=== PATIENT | female | born 1950 | race Hispanic/Latino ===

== ENCOUNTER 2017-12-24 12:39 | Emergency (ER) | payer OTHER, MEDICARE ==
[2017-12-24] MEDS ORDERED: MOTRIN PO ONE (13:25)
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
[2017-12-24 17:16] VITALS: BP 173/64
== END 2017-12-24 17:27 | disposition home or self-care (01) ==
LOC: ED 12:39
DX: S16.1XXA Strain of muscle, fascia and tendon at neck level, initial encounter (principal); S09.90XA Unspecified injury of head, initial encounter; I10 Essential (primary) hypertension; V49.9XXA Car occupant (driver) (passenger) injured in unspecified traffic accident, initial encounter; Y93.89 Activity, other specified; Y99.8 Other external cause status; Y92.410 Unspecified street and highway as the place of occurrence of the external cause
CPT/HCPCS: 70450; 72125; 99284